=== PATIENT | female | born 1945 | race Caucasian/White ===

== ENCOUNTER 2022-08-31 09:42 | Emergency (ER) | payer OTHER ==
[~2022-08-31] VITALS: Ht 157.5 cm; Wt 45.8 kg
[2022-08-31] MEDS ORDERED: COZAAR100 MG (10:15)
[2022-08-31] MEDS ORDERED: SYNTHROID100 MCG (10:15)
[2022-08-31] MEDS ORDERED: EVISTA60 MG PO (10:15)
[2022-08-31] MEDS ORDERED: IBU800 MG PO (15:27)
== END 2022-08-31 16:10 | disposition home or self-care (01) ==
LOC: ER 09:42
DX: S09.8XXA Other specified injuries of head, initial encounter (principal); E03.9 Hypothyroidism, unspecified; I10 Essential (primary) hypertension; Z91.013 Allergy to seafood; S40.211A Abrasion of right shoulder, initial encounter; S89.81XA Other specified injuries of right lower leg, initial encounter; W01.0XXA Fall on same level from slipping, tripping and stumbling without subsequent striking against object, initial encounter; Y93.89 Activity, other specified; Y92.018 Other place in single-family (private) house as the place of occurrence of the external cause